=== PATIENT | female | born 1980 | race Caucasian/White ===

== ENCOUNTER 2020-01-27 09:20 | Emergency (ER) | payer MEDICAID ==
--- NOTE | 2020-01-27 09:47 | EDM.PDOC ---
ED HPI GENERAL MEDICAL PROBLEM - General Chief Complaint: Chest Pain Stated Complaint: CHEST PAIN Time Seen by Provider: 01/27/20 09:37 Source of Information: Reports: Patient History Limitations: Reports: No Limitations - History of Present Illness INITIAL COMMENTS - FREE TEXT/NARRATIVE: 39-year-old female who reports beginning about 2 weeks ago she started having pain in her left chest that is dull and aching type pain. It well last for a variable period of time but no more than about 5 minutes. It does not seem to have any inciting event and the pain begins at rest usually. Beginning this weekend she started having shortness of breath and last night she began having left shoulder and left jaw pain. This seemed to come and go as well and it also did not have any relationship to activity or any other event. She went to the [facility] in [place] today and was given 4 baby aspirin and nitroglycerin sublingual 2 with some decrease in her pain. The pain while she was over there was a 4/10. She reports that the pain went away after the nitroglycerin while she was in the clinic but it is back now and add a 2/10 level. This pain has been present now for about the past 15 minutes. She has had some mild nausea that has come and gone as well. She has no neck or shoulder or jaw pain at present. She has felt somewhat fatigued but has had no weakness. She has noted some vertigo over the past 2 nights as well. This seems to be present when she is lying down and has no relationship with movement or activity. No cough. No fevers. No nasal congestion. No back pain. The patient does have a strong family history of cardiac disease with her father dying of an MD at the age of 50 and with her brother dying of an MD at the age of 35. There are no other associated signs or symptoms. There are no other modifying factors. Onset: Other (2 weeks ago) Duration: Intermittent, Waxing/Waning Location: Reports: Face (Left jaw), Neck, Chest, Upper Extremity, Left (Left shoulder) Quality: Reports: Ache, Pressure Severity: Mild Improves with: Reports: Medication (It improved with nitroglycerin but all other times went away without any medication or retention.) Worsens with: Reports: Other (May be somewhat worse with palpation.) Context: Reports: Other Associated Symptoms: Reports: No Other Symptoms (Except as above.) Treatments DIAGNOSTIC TECH: Reports: Aspirin, Nitroglycerin chest Pain Score (Numeric/FACES): 0 left jaw/shoulder Pain Score (Numeric/FACES): 2 - Related Data Allergies Allergy/AdvReac Type Severity Reaction Status Date / Time ketorolac [From Toradol] Allergy Rash Verified 01/27/20 09:45 Past Medical History Cardiovascular History: Reports: High Cholesterol Psychiatric History: Reports: Anxiety, Depression Endocrine/Metabolic History: Reports: Diabetes, Type I (Diagnosed at age 1.) - Past Surgical History HEENT Surgical History: Reports: Oral Surgery ([place] teeth extraction) Female Surgical History: Reports: Section (2), Hysterectomy Social & Family History - Family History Cardiac: Reports: CAD (Father and brother), MD (Father and brother both at age 50 and age 35, respectively) - Tobacco Use Tobacco Use Status *Q: Unknown Ever Used Tobacco (Nonsmoker) - Alcohol Use Alcohol Use History: Yes Alcohol Use Frequency: Socially - Living Situation & Occupation Occupation: Employed (She is a teacher for special education.) ED ROS GENERAL - Review of Systems Review Of Systems: See Below Constitutional: Reports: No Symptoms HEENT: Reports: No Symptoms Respiratory: Reports: Shortness of Breath Cardiovascular: Reports: Chest Pain Endocrine: Reports: No Symptoms GI/Abdominal: Reports: Nausea : Reports: No Symptoms Musculoskeletal: Reports: Shoulder Pain (Left shoulder, neck and jaw pain, intermittently) Skin: Reports: No Symptoms Neurological: Reports: Other (Patient reports vertigo when lying down) Psychiatric: Reports: Anxiety Hematologic/Lymphatic: Reports: No Symptoms Immunologic: Reports: No Symptoms ED EXAM, GENERAL - Physical Exam Exam: See Below Exam Limited By: No Limitations General Appearance: Alert, WD/WN, No Apparent Distress Eye Exam: Bilateral Eye: EOMI, Normal Inspection, PERRL Ears: Normal External Exam, Hearing Grossly Normal Ear Exam: Bilateral Ear: Auricle Normal Nose: Normal Inspection, Normal Mucosa, No Blood Throat/Mouth: Normal Inspection, Normal Lips, Normal Teeth, Normal Gums, Normal Oropharynx, Normal Voice Head: Atraumatic, Normocephalic Neck: Normal Inspection, Supple, Non-Tender, Full Range of Motion Respiratory/Chest: No Respiratory Distress, Lungs Clear, Normal Breath Sounds, No Accessory Muscle Use, Chest Non-Tender, Other (Mild tenderness with palpation over the left parasternal chest.) Cardiovascular: Normal Peripheral Pulses, Regular Rate, Rhythm, No Murmur Peripheral Pulses: 2+: Radial (L), Radial (R), Dorsalis Pedis (L), Dorsalis Pedis (R) GI/Abdominal: Normal Bowel Sounds, Soft, Non-Tender, No Mass Back Exam: Normal Inspection, Full Range of Motion Extremities: Normal Inspection, Normal Range of Motion, Non-Tender, No Pedal Edema, Normal Capillary Refill Neurological: Alert, Oriented, CN II-XII Intact, Normal Cognition, No Motor/Sensory Deficits Psychiatric: Normal Affect Skin Exam: Warm, Dry, Intact, Normal Color, No Rash #1 Interpretation EKG Date: 01/27/20 Time: 09:30 Rhythm: NSR Rate (Beats/Min): 72 [place]: Normal P-Wave: Present QRS: Normal ST-T: Normal QT: Normal Comparison: NA - No Prior EKG EKG Interpretation Comments: Normal EKG. #2 Interpretation EKG Date: 01/27/20 Time: 11:01 Rhythm: NSR Rate (Beats/Min): 83 [place]: Normal P-Wave: Present QRS: Normal ST-T: Normal QT: Normal Comparison: No Change (No change from previous EKG performed at 9:30 AM today.) Course - Vital Signs Last Recorded V/S: Last Vital Signs Temp 36.9 C 01/27/20 09:22 Pulse 74 01/27/20 10:15 Resp 16 01/27/20 10:15 BP 126/64 01/27/20 11:26 Pulse Ox 99 01/27/20 10:15 - Orders/Labs/Meds Orders: Active Orders 24 hr Category Date Time Status EKG Documentation Completion [RC] ASDIRECTED Care 01/27/20 10:03 Active EKG Documentation Completion [RC] ASDIRECTED Care 01/27/20 10:56 Active CORONAVIRUS COVID-19 ELVER [MOLEC] Stat Lab 01/27/20 11:10 Received Heparin Sodium/0.45% NaCl [Heparin 25,000 Units in 1/2 Med 01/27/20 11:18 Active NS 500 ML] 500 ml IV ASDIRECTED Sodium Chloride 0.9% [Normal Saline] 1,000 ml Med 01/27/20 10:15 Active IV ASDIRECTED Sodium Chloride 0.9% [Saline Flush] Med 01/27/20 10:02 Active 10 ml FLUSH ASDIRECTED PRN Peripheral IV Insertion Adult [OM.PC] Routine Oth 01/27/20 10:02 Ordered EKG 12 Lead [EK] Routine Ther 01/27/20 10:02 Ordered EKG 12 Lead [EK] Routine Ther 01/27/20 10:56 Ordered Medication Orders Sodium Chloride (Normal Saline) 1,000 mls @ 100 mls/hr IV ASDIRECTED MEGHAN Last Admin: 01/27/20 10:20 Dose: 100 mls/hr Documented by: TARAH Heparin Sodium/Sodium Chloride (Heparin 25,000 Units In 1/2 Ns 500 Ml) 500 mls @ 20 mls/hr IV ASDIRECTED MEGHAN Last Admin: 01/27/20 11:52 Dose: 20 mls/hr Documented by: TARAH Cosigned by: ABRIL Sodium Chloride (Saline Flush) 10 ml FLUSH ASDIRECTED PRN PRN Reason: Keep Vein Open Labs: Laboratory Tests 01/27/20 01/27/20 01/27/20 Range/Units 09:55 09:55 09:55 WBC 3.7 (3.0-10.3) x10-3/uL RBC 4.77 (3.60-5.20) x10(6)uL Hgb 13.5 (11.4-15.5) g/dL Hct 40.6 (34.2-48.2) % MCV 85.2 (76.7-100.5) fL MCH 28.2 (23.9-33.9) pg MCHC 33.1 (31.9-34.8) g/dL RDW 13.4 (12.3-16.5) % Plt Count 292 (151-488) x10(3)uL MPV 7.6 (7.1-12.4) fL Neut % (Auto) 55.7 (30.8-76.2) % Lymph % (Auto) 29.0 (18.4-52.1) % [place] % (Auto) 11.3 (4.4-15.7) % Eos % (Auto) 3.1 (0.6-8.1) % Baso % (Auto) 0.9 (0.2-1.5) % Neut # (Auto) 2.0 (1.5-6.3) x10-3/uL Lymph # (Auto) 1.1 (1.0-4.4) x10-3/uL [place] # (Auto) 0.4 (0.3-1.0) x10-3/uL Eos # (Auto) 0.1 (0.0-0.8) x10-3/uL Baso # (Auto) 0.0 (0.0-0.1) x10-3/uL PT (9.0-11.1) sec INR (1.00-1.24) APTT (24.4-33.2) SECONDS D-Dimer, Quantitative 0.27 (0.0-0.59) mg/LFEU Sodium 135 (135-145) mmol/L Potassium 3.8 (3.5-5.3) mmol/L Chloride 98 L (100-110) mmol/L Carbon Dioxide 25 (21-32) mmol/L BUN 9 (7-18) mg/dL Creatinine 0.6 (0.55-1.02) mg/dL Est Cr Clr Drug Dosing 107.63 mL/min Estimated GFR (MDRD) > 60 (>60) BUN/Creatinine Ratio 15.0 (9-20) Glucose 239 H (80-116) mg/dL Calcium 8.6 (8.6-10.2) mg/dL Magnesium 1.8 (1.8-2.5) mg/dL Total Bilirubin 0.7 (0.1-1.3) mg/dL AST 15 D (5-25) IU/L ALT 19 D (12-36) U/L Alkaline Phosphatase 72 (56-112) IU/L Troponin I (4.0-60.3) pg/mL Total Protein 7.0 (6.0-8.0) g/dL Albumin 4.0 (3.5-5.2) g/dL Globulin 3.0 g/dL Albumin/Globulin Ratio 1.3 01/27/20 01/27/20 01/27/20 Range/Units 09:55 09:55 09:55 WBC (3.0-10.3) x10-3/uL RBC (3.60-5.20) x10(6)uL Hgb (11.4-15.5) g/dL Hct (34.2-48.2) % MCV (76.7-100.5) fL MCH (23.9-33.9) pg MCHC (31.9-34.8) g/dL RDW (12.3-16.5) % Plt Count (151-488) x10(3)uL MPV (7.1-12.4) fL Neut % (Auto) (30.8-76.2) % Lymph % (Auto) (18.4-52.1) % [place] % (Auto) (4.4-15.7) % Eos % (Auto) (0.6-8.1) % Baso % (Auto) (0.2-1.5) % Neut # (Auto) (1.5-6.3) x10-3/uL Lymph # (Auto) (1.0-4.4) x10-3/uL [place] # (Auto) (0.3-1.0) x10-3/uL Eos # (Auto) (0.0-0.8) x10-3/uL Baso # (Auto) (0.0-0.1) x10-3/uL PT 10.8 (9.0-11.1) sec INR 1.00 (1.00-1.24) APTT 24.0 L (24.4-33.2) SECONDS D-Dimer, Quantitative (0.0-0.59) mg/LFEU Sodium (135-145) mmol/L Potassium (3.5-5.3) mmol/L Chloride (100-110) mmol/L Carbon Dioxide (21-32) mmol/L BUN (7-18) mg/dL Creatinine (0.55-1.02) mg/dL Est Cr Clr Drug Dosing mL/min Estimated GFR (MDRD) (>60) BUN/Creatinine Ratio (9-20) Glucose (80-116) mg/dL Calcium (8.6-10.2) mg/dL Magnesium (1.8-2.5) mg/dL Total Bilirubin (0.1-1.3) mg/dL AST (5-25) IU/L ALT (12-36) U/L Alkaline Phosphatase (56-112) IU/L Troponin I < 4.0 L (4.0-60.3) pg/mL Total Protein (6.0-8.0) g/dL Albumin (3.5-5.2) g/dL Globulin g/dL Albumin/Globulin Ratio Meds: Medications Generic Name Dose Route Start Last Admin Trade Name Freq PRN Reason Stop Dose Admin Sodium Chloride 1,000 mls @ 100 mls/hr 01/27/20 10:15 01/27/20 10:20 Normal Saline IV 100 mls/hr ASDIRECTED MEGHAN Administration Heparin Sodium/Sodium Chloride 500 mls @ 20 mls/hr 01/27/20 11:18 01/27/20 11:52 Heparin 25,000 Units In 1/2 Ns 500 Ml IV 20 mls/hr ASDIRECTED MEGHAN Administration Sodium Chloride 10 ml 01/27/20 10:02 Saline Flush FLUSH ASDIRECTED PRN Keep Vein Open Discontinued Medications Generic Name Dose Route Start Last Admin Trade Name Freq PRN Reason Stop Dose Admin Heparin Sodium (Porcine) 4,000 units 01/27/20 11:17 01/27/20 11:35 Heparin Sodium IVPUSH 01/27/20 11:18 4,000 units .BOLUS ONE Administration Nitroglycerin 0.4 mg 01/27/20 10:03 01/27/20 11:26 Nitrostat SL 0.4 mg Q5M PRN Administration Chest Pain Nitroglycerin 1 gm 01/27/20 11:17 01/27/20 11:34 Nitro-Bid 2% TOP 01/27/20 11:18 1 gm ONETIME ONE Administration - Radiology Interpretation Free Text/Narrative:: Portable chest x-ray shows no acute disease. - Re-Assessments/Exams Free Text/Narrative Re-Assessment/Exam: 01/27/20 10:40: Patient's EKG was normal. Her blood tests are all reassuringly normal except for an elevated glucose at 239. Her initial troponin was negative. Currently chest pain-free after another nitroglycerin here in the emergency department. With her strong family history, her history of diabetes mellitus and lipidemia and with the concerning story of chest pain that she is having, I feel that I should discuss the patient's case with the cat skinner. The patient had been sent from [facility] in [place] and I had discussed this with the patient previously and she had intimated to me at that time that I should call the doctors at [facility] in [place]. 01/27/20 10:55: I called [facility] and they will have to have the cat skinner call me back. 01/27/20 11:00: The patient's chest pain is now 2/10 and we will give her another sublingual nitroglycerin and I will repeat her EKG. She has remained vitally stable with a blood pressure in the 110-120 systolic range. 01/27/20 11:08: The patient's repeat EKG is unchanged from previous. There is no STEMI pattern. I did discuss the patient's case with Dr. Santana him a cat skinner at [facility] in [place], and she feels that the patient cardiology specially services with possible cardiac catheterization and this is not available at [facility]. She feels that the patient will be best served transferred to [place]. I will discuss patient's case with the hospitalist at this point. 01/27/20 11:20: I discussed the patient's case with Dr. Paniagua, hospitalist at [facility], and he has agreed to accept the patient in transfer. The patient will be placed on Nitropaste to her chest and I will also heparinize the patient via ACS guidelines. A rapid Covid test is pending at this point. 01/27/20 11:25: I discussed all of this with the patient and she informed me that she would really rather go to [facility] as that is where she gets her genetic testing and also specialty care for her type 1 diabetes. Therefore, I will call in [place] and discussed this with them. The patient has a 1/10 level of chest pain at this point and we will give her another sublingual nitroglycerin. I have ordered the Nitropaste and also ordered the heparin bolus and drip. The patient remains hemodynamically stable. 01/27/20 11:35: I discussed the patient's case with Dr. Franco, intake physician at [facility], and he has agreed to accept the patient in transfer. The patient is in agreement with the plans for transfer to [facility]. The patient will be transferred to [facility] via ambulance with direct admission to [facility]. We will continue close monitoring of the patient. 01/27/20 12:17: Rapid Covid was negative. She is currently chest pain-free. has accepted the patient and there is a bed available for the patient. We will need to get ground EMS to transport the patient. Departure - Departure Time of Disposition: 12:20 (To [facility]) Disposition: DC/Tfer to Acute Hospital 02 Reason for Transfer *Q: Other (Need cardiology specially services (cardiac catheterization)) Condition: Good (Guarded) Clinical Impression: Acute coronary syndrome Referrals: PCP,None [Ordering Only Provider] - Forms: ED Department Discharge Sepsis Event Note (ED) - Focused Exam Vital Signs: Vital Signs Temp Pulse Resp BP BP Pulse Ox 01/27/20 11:26 126/64 01/27/20 11:07 118/61 01/27/20 10:54 126/69 01/27/20 10:15 74 16 131/70 99 01/27/20 10:10 122/72 01/27/20 09:22 36.9 C 74 13 142/66 H 99 - My Orders Last 24 Hours: My Active Orders 01/27/20 10:02 Sodium Chloride 0.9% [Saline Flush] 10 ml FLUSH ASDIRECTED PRN Peripheral IV Insertion Adult [OM.PC] Routine EKG 12 Lead [EK] Routine 01/27/20 10:03 EKG Documentation Completion [RC] ASDIRECTED 01/27/20 10:15 Sodium Chloride 0.9% [Normal Saline] 1,000 ml IV ASDIRECTED 01/27/20 10:56 EKG Documentation Completion [RC] ASDIRECTED EKG 12 Lead [EK] Routine 01/27/20 11:10 CORONAVIRUS COVID-19 ELVER [MOLEC] Stat 01/27/20 11:18 Heparin Sodium/0.45% NaCl [Heparin 25,000 Units in 1/2 NS 500 ML] 500 ml IV ASDIRECTED - Assessment/Plan Last 24 Hours: My Active Orders 01/27/20 10:02 Sodium Chloride 0.9% [Saline Flush] 10 ml FLUSH ASDIRECTED PRN Peripheral IV Insertion Adult [OM.PC] Routine EKG 12 Lead [EK] Routine 01/27/20 10:03 EKG Documentation Completion [RC] ASDIRECTED 01/27/20 10:15 Sodium Chloride 0.9% [Normal Saline] 1,000 ml IV ASDIRECTED 01/27/20 10:56 EKG Documentation Completion [RC] ASDIRECTED EKG 12 Lead [EK] Routine 01/27/20 11:10 CORONAVIRUS COVID-19 ELVER [MOLEC] Stat 01/27/20 11:18 Heparin Sodium/0.45% NaCl [Heparin 25,000 Units in 1/2 NS 500 ML] 500 ml IV ASDIRECTED
[2020-01-27] MEDS ORDERED: Sodium Chloride 0.9% 10 ML Syringe FLUSH PRN (10:02)
[2020-01-27] MEDS: Nitroglycerin 0.4 MG Tab.SL SL PRN ×4 (10:10→11:26)
[2020-01-27] MEDS ORDERED: Sodium Chloride 0.9% 1,000 ML IV SCH (10:15)
--- NOTE | 2020-01-27 11:09 | CR ---
INDICATION: Chest pain. CHEST ONE VIEW: An AP upright portable view of the chest 01/27/20 - no comparisons. The heart is normal in size and shape. Overlying EKG leads are noted. Mediastinum was unremarkable. No gross bony abnormality was seen. An active infiltrate or effusion was not identified. IMPRESSION: No acute process. MTDD
[2020-01-27] MEDS ORDERED: Heparin Sodium 5,000 Units/ML Vial IVPUSH ONE (11:17)
[2020-01-27] MEDS ORDERED: Nitroglycerin 2% Oint 1 GM UD Packet TOP ONE (11:17)
[2020-01-27] MEDS ORDERED: Heparin Sodium/0.45% NaCl 500 ML IV SCH (11:18)
== END 2020-01-27 13:00 ==
LOC: FB.ED 09:20
DX: I24.9 Acute ischemic heart disease, unspecified (principal); E10.9 Type 1 diabetes mellitus without complications; Z88.5 Allergy status to narcotic agent; Z20.828 Contact with and (suspected) exposure to other viral communicable diseases
CPT/HCPCS: 36415; 71045; 80053; 83735; 84484; 85025; 85379; 85610; 85730; 93005; 96365; 99285-25; A9270-GY; J1644; J7030; U0002